=== PATIENT | female | born 1970 | race Caucasian/White ===

== ENCOUNTER 2016-09-16 10:51 | Day surgery (SDC) | payer OTHER ==
[~2016-09-16 10:51] MED LIST: POVIDONE-IODINE 30 ML STERILE SOLUTION TP ONE
[2016-09-16] MEDS ORDERED: LIDOCAINE 1% 5 ML SDV ONE (11:26)
[2016-09-16] MEDS ORDERED: MIDAZOLAM 2 MG/2 ML VIAL ONE (13:39)
[2016-09-16] MEDS ORDERED: PROPOFOL 200 MG/20 ML VIAL ONE ×2 (13:44)
[2016-09-16] MEDS ORDERED: fentaNYL 100 MCG/2 ML INJ ONE (13:44)
[2016-09-16] MEDS ORDERED: DEXAMETHASONE 4 MG/ML VIAL ONE (13:59)
[2016-09-16] MEDS ORDERED: LIDOCAINE 2% 5 ML SDV ONE (13:59)
[2016-09-16] MEDS ORDERED: ONDANSETRON 4 MG/2 ML VIAL ONE (14:00)
--- NOTE | 2016-09-16 15:06 | SUROPNOTE ---
[facility] Operative Report - Surgery Patient: Bertha Ray Preop Diagnosis: Abnormal uterine bleeding Postop Diagnosis: Same Procedure: Diagnostic hysteroscopy, polypectomy, dilation and curettage Fluids: 500 ml crystalloid Urine: 400 ml EBL: Minimal Surgeon: Juan Anesthesia: General with LMA Anesthesiologist: Dahlia Findings: Enlarged uterus on EUA. Uterine cavity notable for a small polyp at fundus and one small polyp at right cornua. No submusocal fibroids. Fluid deficit < 300 ml. Indication: Pt is a 46 year old G0 with abnormal uterine bleeding, and evidence of polyp on endometrial biopsy. After discussion of risks and benefits, she desires to proceed with surgical management. She had preoperative cervical preparation with misoprostol. Details of procedure: Pt was brought to the operating room and general anesthesia was induced after confirming the correct patient and procedure. She was placed in dorsal lithotomy with enmanuel stirrups and was prepped and draped in the normal sterile fashion, with a in and out catheterization of the bladder. A time out was performed. We then proceeded with the hysteroscopy. The speculum was placed, and the anterior lip of the cervix grasped with a single toothed tenaculum. The cervix was easily dilated to 9 mm. The 8 mm hysteroscope was introduced using normal saline as a medium. The cervix and intrauterine cavity were completely visualized with findings as noted above. Both ostia were visualized. A polypectomy was performed using the Truclear device. A sharp curettage was performed with scant return of tissue. All instruments were removed and hemostasis was noted. Counts correct x 2. Pt was awakened and brought to the recovery room. Shelley Martinez MD P [phone]
[2016-09-16] MEDS ORDERED: HYDROCODONE/APAP 5/325 TAB ONE (15:10)
[2016-09-16] MEDS ORDERED: IBUPROFEN 200 MG TAB PO ONE (15:26)
== END 2016-09-16 16:10 | disposition home or self-care (01) ==
LOC: FSGY 10:51
PROVIDERS: ATTEND Obstetrics & Gynecology
PROC: 0UB98ZZ Excision of Uterus, Via Natural or Artificial Opening Endoscopic (ICD-10-PCS; principal; 2016-09-16 12:30)
DX: N84.0 Polyp of corpus uteri (principal)
CPT/HCPCS: 58558; C1782; J1100; J2250; J2405; J2704; J3010

== ENCOUNTER → 2017-07-26 | Outpatient (CLI) | payer OTHER | LOC: FIMAGING 10:12 | PROVIDERS: ATTEND Family Medicine | DX: Z03.89 Encounter for observation for other suspected diseases and conditions ruled out (principal); Z80.3 Family history of malignant neoplasm of breast | CPT/HCPCS: G0204 ==

== ENCOUNTER → 2017-09-06 | Outpatient (CLI) | payer OTHER | LOC: BMCIMAGING 09:30 | PROVIDERS: ATTEND Family Medicine | DX: J18.9 Pneumonia, unspecified organism (principal) ==

== ENCOUNTER → 2018-02-23 | Outpatient (CLI) | payer OTHER | LOC: FLAB 12:27 | PROVIDERS: ATTEND Family Medicine | DX: Z03.89 Encounter for observation for other suspected diseases and conditions ruled out (principal) ==

== ENCOUNTER → 2018-08-14 | Outpatient (CLI) | payer OTHER | LOC: BMCIMAGING 09:47 | PROVIDERS: ATTEND Family Medicine | DX: Z00.00 Encounter for general adult medical examination without abnormal findings (principal) ==

== ENCOUNTER 2018-10-24 07:50 | Emergency (ER) | payer OTHER ==
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
[2018-10-24] MEDS ORDERED: IPRATROPIUM/ALBUTEROL 3 ML DEYVIAL IH ONE ×2 (08:06→08:07)
[2018-10-24] MEDS ORDERED: OXYCODONE/APAP 5/325 TAB PO ONE (08:08)
[2018-10-24] MEDS ORDERED: AZITHROMYCIN 250 MG TAB PO ONE (09:07)
[2018-10-24 09:30] VITALS: BP 148/96
== END 2018-10-24 09:49 | disposition home or self-care (01) ==
DX: J20.8 Acute bronchitis due to other specified organisms (principal); J45.901 Unspecified asthma with (acute) exacerbation